=== PATIENT | male | born 1955 | race Caucasian/White ===

== ENCOUNTER 2017-04-13 05:13 | Inpatient (IN) ==
[2017-04-12 13:24] LABS: HEMATOCRIT 46.7 % (42.0-52.0); HEMOGLOBIN 15.8 g/dL (14.0-18.0); MCH 30.5 PG (27-31); MCHC 33.8 g/dL (33-37); MCV 90.2 FL (81-99); MPV 10.1 FL (7.4-10.4); RBC 5.18 XMIL (4.7-6.1)
[2017-04-12 13:46] LABS: AGAP 9; BUN 7 mg/dL (8-22); CALCIUM 9.6 mg/dL (8.8-10.2); CHLORIDE 97 mmol/L (98-107); COSMO 266; SODIUM 134 mmol/L (136-145); TCO2 28 mmol/L (25-35)
--- NOTE | 2017-04-12 14:46 | EKG Report ---
Test Performed on : 04/12/2017 12:27:58 PM Test Reason : PAT Blood Pressure : / mmHG Vent. Rate : 062 BPM Atrial Rate : 062 BPM P-R Int : 164 ms QRS Dur : 084 ms QT Int : 400 ms P-R-T Axes : 067 032 064 degrees QTc Int : 406 ms Normal sinus rhythm. Normal ECG When compared with ECG of 09-NOV-2016 11:44, No significant change was found Confirmed by Kade Jones MD ([id number]) on 04/13/2017 6:46:18 PM
[2017-04-13] MEDS ORDERED: LR 1,000 ML ONE (05:33)
[2017-04-13] MEDS ORDERED: KEFZOL 1 GM/D5W 1 GM/50 ML IVPB ONE (05:33)
[2017-04-13] MEDS ORDERED: XYLOCAINE-MPF 1% ONE (05:47)
[2017-04-13] MEDS ORDERED: LOPRESSOR ONE (05:57)
[2017-04-13] MEDS ORDERED: XYLOCAINE-MPF 2% ONE (06:23)
[2017-04-13] MEDS ORDERED: ZOFRAN ONE (06:23)
[2017-04-13] MEDS ORDERED: DIPRIVAN 1% ONE (06:25)
[2017-04-13] MEDS ORDERED: KEFZOL ONE (06:25)
[2017-04-13] MEDS ORDERED: NS 1,000 ML ONE ×2 (06:25→09:29)
[2017-04-13] MEDS ORDERED: HEPARIN ONE (06:25)
[2017-04-13] MEDS ORDERED: FENTANYL ONE (06:26)
[2017-04-13] MEDS ORDERED: LOPRESSOR PO ONE (06:30)
[2017-04-13] MEDS ORDERED: DILAUDID ONE (06:47)
[2017-04-13] MEDS ORDERED: EPHEDRINE ONE (07:16)
[2017-04-13] MEDS ORDERED: ROBINUL ONE ×2 (07:17→08:32)
[2017-04-13] MEDS ORDERED: HEPARIN (DOSE) ONE ×2 (07:28→07:46)
[2017-04-13 07:42] LABS: URINE MICRO REVIEW NEEDED? NO; URINE SOURCE CATH
[2017-04-13 07:48] LABS: BILIRUBIN URINE NEGATIVE (NEGATIVE); BLOOD URINE NEGATIVE (NEGATIVE); COLOR YELLOW; GLUCOSE URINE NEGATIVE (NEGATIVE); LEUKOCYTES URINE NEGATIVE (NEGATIVE); NITRITE URINE NEGATIVE (NEGATIVE); PH URINE 6.5; PROTEIN URINE NEGATIVE (NEGATIVE); SP GRAVITY URINE 1.011; TURBIDITY URINE CLEAR (CLEAR); UROBILINOGEN URINE NORMAL (NORMAL)
[2017-04-13 07:49] LABS: UR EPITHELIAL CELLS <10 /HPF (<10); URINE BACTERIA NEGATIVE /HPF; URINE RBC <10 /HPF (<10); URINE WBC <10 /HPF (<10)
[2017-04-13] MEDS ORDERED: NEO-SYNEPHRINE ONE (08:18)
[2017-04-13] MEDS ORDERED: NEOSTIGMINE ONE (08:32)
[2017-04-13] MEDS ORDERED: PHENERGAN ONE (09:29)
[2017-04-13] MEDS ORDERED: ZOFRAN IV PRN (12:11)
[2017-04-13] MEDS ORDERED: DILAUDID IV PRN (12:11)
--- NOTE | 2017-04-13 12:44 | OPERATIVE NOTE ---
PROCEDURE DATE: 04/13/2017 PROCEDURE PERFORMED: Left femoral popliteal bypass using a 7 mm Distaflo PTFE graft. SURGEON: Javier Gallego MD. LINE RUNNER: EVONNE Burger. PREOPERATIVE DIAGNOSIS: Claudication left leg. POSTOPERATIVE DIAGNOSIS: Claudication left leg. FINDINGS: The greater saphenous vein was marginal for use. It appeared that the patient probably had an adequate 3 vessel runoff so I decided to do a femoral popliteal using a PTFE above the knee. DESCRIPTION OF PROCEDURE: Satisfactory general endotracheal anesthesia was achieved. The left groin and left leg were prepped and draped in a sterile fashion. The foot was excluded. A vertical incision was made in the left groin. We dissected down to the common femoral artery, surrounded it an umbilical tape. Dissected out the superficial femoral and the deep femoral, surrounded them by vessel loops. An antibiotic sponge was placed in the groin wound. We then turned our attention distally and made an incision along the medial aspect of the distal thigh. Dissected into the popliteal space. We identified the distal superficial femoral and proximal popliteal artery, surrounded them with vessel loops. We gave the patient 7000 units of heparin systemically. We tunneled a 7 mm PTFE Distaflo graft into the leg. We then decided to address the distal anastomosis first. After the heparin had circulated, we opened the artery and extended it with the Pulido scissors to match the gonzales of the Distaflo graft. There was flow in the artery. We passed dilators distally and went all the way to a 4. There was plaque in the popliteal but we were able to go from a 2.5, 3, 3.5, to a 4 dilator through the artery. Again satisfactory back bleeding was present. We then constructed this anastomosis using a CV-6 Pindall suture. We did not tie it but then turned our attention proximally. We then occluded the flow in the common femoral at the inguinal ligament. We incised the artery on its anterior aspect and extended with the Pulido scissors. We then cut and remove the ring from the graft and then cut the graft in a fishmouth type fashion to match the arteriotomy. We then constructed this anastomosis using a CV- 5 Pindall suture. We then established flow through the proximal anastomosis. A couple of extra stitches were used to achieve complete hemostasis. We placed Gelfoam along the course of the proximal anastomosis and then turned our attention distally. The graft flushed well and we then tied the distal anastomosis as well. Again a couple of extra stitches were used to achieve satisfactory hemostasis. We irrigated out both wounds with Kefzol-impregnated saline. Hemostasis was satisfactory. We closed the wounds with 3-0 Polysorb running stitch 1st and 3-0 Polysorb interrupted stitches second. We then closed the skin with olu in both wounds. Sterile dressing was applied. He tolerated it well. Was sent to the recovery room in satisfactory condition. cc: Javier Gallego MD
[2017-04-13] MEDS: KEFZOL 1 GM/D5W 1 GM/50 ML IVPB IV SCH ×2 (17:57→22:22)
[2017-04-13] MEDS: NS 1,000 ML IV SCH ×2 (17:58→22:21)
[2017-04-13] MEDS: NORCO-10 PO PRN ×2 (18:01→22:21)
[2017-04-14] MEDS: NS 1,000 ML IV SCH (02:07)
[2017-04-14] MEDS: NORCO-10 PO PRN ×4 (06:19→20:00)
[2017-04-14 06:50] LABS: AGAP 7; BUN 12 mg/dL (8-22); CALCIUM 7.9 mg/dL (8.8-10.2); CHLORIDE 100 mmol/L (98-107); COSMO 267; POTASSIUM 4.4 mmol/L (3.5-5.1); SODIUM 133 mmol/L (136-145); TCO2 26 mmol/L (25-35)
[2017-04-14 07:39] LABS: MANUAL DIFF NEEDED? NO
[2017-04-14 07:45] LABS: BASO% 0.2 % (0.0-0.8); EOS# 0.11 X1000 (0.0-0.7); EOS% 1.2 % (0.0-10.0); HEMATOCRIT 32.1 % (42.0-52.0); HEMOGLOBIN 10.7 g/dL (14.0-18.0); LYMPH# 1.57 X1000 (1.2-3.4); LYMPH% 17.8 % (20.5-51.1); MCH 30.8 PG (27-31); MCHC 33.3 g/dL (33-37); MCV 92.5 FL (81-99); MONO# 1.06 X1000 (0.11-0.59); MPV 10.4 FL (7.4-10.4); NEUT% 68.8 % (42.2-75.2); PLT 158 X1000 (130-400); RBC 3.47 XMIL (4.7-6.1)
[2017-04-14] MEDS ORDERED: PRINIVIL PO SCH (09:00)
[2017-04-14] MEDS: LOPRESSOR PO SCH (09:34)
[2017-04-14] MEDS: FLOMAX PO SCH (09:35)
[2017-04-14] MEDS: SYNTHROID PO SCH (09:35)
[2017-04-14] MEDS: ASPIRIN PO SCH (09:35)
[2017-04-14] MEDS: NEURONTIN PO SCH (09:35)
[2017-04-14] MEDS: PRILOSEC PO SCH (09:35)
[2017-04-14] MEDS: LASIX PO SCH (09:35)
[2017-04-14] MEDS ORDERED: NS 1,000 ML IV SCH (12:36)
[2017-04-14] MEDS: ROBAXIN PO SCH (17:15)
--- NOTE | 2017-04-14 21:29 | VASCULAR LAB ---
DATE: 04/12/2017 STUDY: Left lower extremity greater saphenous vein mapping. REQUESTING PHYSICIAN: Dr. Gallego. DIRECTOR COMPLIANCE: Barber. INDICATION: Evaluate for bypass. FINDINGS: The greater saphenous vein was visualized along its course from the groin down to the foot on the left lower extremity. It appeared compressible in all locations. No evidence of thrombus. Starting at zone 1 it was 4.1 mm, zone 2 was 2.7 mm, zone 3 was 2.7 mm, zone 4 was 2.0 mm, zone 5 was 2.1 mm, zone 6 was 2.1 mm, zone 7 was 2.1 mm, zone 8 was 2.4 mm. SUMMARY: Marginal conduit in the left lower extremity with a small but patent greater saphenous vein. cc: MD Javier Kimble MD
[2017-04-15 07:36] VITALS: BP 96/48
[2017-04-15] MEDS: ASPIRIN PO SCH (10:05)
[2017-04-15] MEDS: NORCO-10 PO PRN (10:05)
[2017-04-15] MEDS: NEURONTIN PO SCH (10:05)
[2017-04-15] MEDS: FLOMAX PO SCH (10:05)
[2017-04-15] MEDS: ROBAXIN PO SCH (10:06)
[2017-04-15] MEDS: PRILOSEC PO SCH (10:06)
[2017-04-15] MEDS: SYNTHROID PO SCH (10:06)
[2017-04-15] MEDS: LOPRESSOR PO SCH (10:07)
[2017-04-15] MEDS: LASIX PO SCH (10:07)
== END 2017-04-15 13:49 | disposition home or self-care (01) ==
LOC: SURHOLD 05:13 → 4N 12:09
PROVIDERS: ADMIT Surgery; ATTEND Surgery

== ENCOUNTER 2017-04-23 14:15 | Inpatient (IN) ==
--- NOTE | 2017-04-23 14:46 | PROVIDER DOCUMENTATION ---
HPI-Musculoskeletal Pain/Inj - GENERAL Chief Complaint: Post Op Complaint Stated Complaint: SURGICAL COMPLICATION Time Seen by Provider: 04/23/17 15:53 Source: patient - HX OF PRESENT ILLNESS-MUSKULOSKELTAL Nature of Presenting Problem: Patient is a pleasant 62 yrs old gentleman who had femoropopliteal bypass graft surgery done on of this month, has come with the pain in the left leg and pus discharge from the wounds. He states that he has been having pain and swelling since the surgery . Getting worse now. He states that he was seen by Dr. Gallego earlier this week and got few of his olu removed from both incision sites at the groin area and the distal thigh. He tells that the wound burst open at both places and some bleeding and discharge was noted. He continues to have pain and discharge from those areas . Difficulty walking. Swelling all over the leg and pain. Has been having some dizziness.No other particular complaints. Review of Systems - Adult - REVIEW OF SYSTEMS - ADULT Constitutional: reports: no symptoms reported Eyes: reports: no symptoms reported Ears, Nose, Mouth & Throat: reports: no symptoms reported Cardiovascular: reports: no symptoms reported Respiratory: reports: no symptoms reported Gastrointestinal: reports: no symptoms reported Genitourinary: reports: no symptoms reported Musculoskeletal: reports: see HPI Neurological: reports: no symptoms reported Psychiatric: reports: no symptoms reported Endocrine: reports: no symptoms reported Hematologic/Lymphatic: reports: no symptoms reported Allergic/Immunologic: reports: no symptoms reported Past History - Adult - PAST MEDICAL HISTORY-ADULT Review of Records: reports: Nursing Assessment Review Major Childhood Illnesses: reports: denies history Cardiovascular: reports: HTN, hyperlipidemia - PRIOR SURGERIES/PROCEDURES Surgical/Procedure History: reports: cardiac stent, back/neck - IMMUNIZATION STATUS Childhood Immunizations: See Nurse Assessment Flu Vaccine: See Nurse Assessment Physical Exam-Injury Related - Physical Exam-Injury Related General Appearance: moderate distress Eyes: PERRL/EOMI, pink conjunctivae Head, Ears, Nose, Mouth & Throat: normocephalic/atraumatic, moist mucous membranes, normal ENT inspection Neck: non-tender, full range of motion, supple Respiratory: lungs clear, other (Chest tenderness from his BYpass surgery since November. No new tenderness or pain) Cardiovascular: regular rate, rhythm Abdominal Exam: non tender, soft Male Genitalia: other ( Left groin area insicion having some some discharge , hard and tender.) Rectal Exam: deferred Lymphatic: no adenopathy Back Exam: normal inspection Extremity: normal range of motion, non-tender Integumentary: normal color, warm/dry Neurologic: no motor/sensory deficits Psych/Mental Status: normal mood/affect, normal thought content, normal thought process, oriented x 3 Progress - PLAN OF CARE/RESULTS Progress/Plan/Lab Results: Orders Category Date Time Status Admit - [facility] Routine AdmDCTranf 04/23/17 18:32 Ordered Advance Diet as Tolerated ORDERED Care 04/23/17 18:32 Completed Dressing Check PRN Care 04/23/17 18:32 Active Dressing Check Q1h Care 04/23/17 18:32 Active Routine PostOp Vital Signs ORDERED Care 04/23/17 18:32 Completed Regular Diet Diet 04/23/17 18:[address] EXTREM LOWER W/O CONTRAST [CT] Stat Exams 04/23/17 14:46 Completed CBC WITH DIFF [HEME] Stat Lab 04/23/17 15:12 Completed COMPREHENSIVE METABOLIC PANEL [CHEM] Stat Lab 04/23/17 15:12 Completed Aspirin Med 04/24/17 09:00 Discontinued 81 mg PO DAILY Cilostazol [Pletal] Med 04/24/17 09:00 Discontinued 100 mg PO DAILY Enoxaparin [Lovenox] Med 04/24/17 08:45 Discontinued 40 mg SUBQ Q24H Furosemide [Lasix] Med 04/24/17 09:00 Discontinued 20 mg PO DAILY Gabapentin [Neurontin] Med 04/24/17 09:00 Discontinued 300 mg PO DAILY Hydrocodone/APAP 10 mg/325 mg [Lutz-10] Med 04/24/17 01:20 Discontinued 1 each PO Q4H PRN PRN Hydrocodone/APAP 7.5 mg/325 mg [Lutz-7.5] Med 04/23/17 18:32 Discontinued 1 each PO Q4H PRN PRN Hydromorphone [Dilaudid] Med 04/24/17 01:18 Discontinued 0.5 mg IV NOW ONE Hydromorphone [Dilaudid] Med 04/24/17 01:18 Discontinued 0.5 mg IV Q3H PRN PRN Lactated Ringers Inj [Lr] 1,000 ml Med 04/23/17 18:32 Discontinued IV 50 mls/hr Levothyroxine [Synthroid] Med 04/24/17 07:00 Discontinued 25 microgm PO ACB Metoprolol [Lopressor] Med 04/24/17 09:00 Discontinued 50 mg PO DAILY Morphine Med 04/23/17 14:49 Discontinued 1 mg IV NOW ONE Omeprazole [Prilosec] Med 04/24/17 09:00 Discontinued 20 mg PO DAILY Ondansetron [Zofran] Med 04/23/17 18:32 Discontinued 4 mg IV Q4-6H PRN PRN Pharmacy Order [Vancomycin IV Per Pharmacy] Med 04/23/17 18:32 Discontinued 1 each MISC DIRECTED Piperacillin/Tazobactam [Zosyn] 3.375 gm Med 04/23/17 21:00 Discontinued 0.9% Sodium Chloride Inj [Ns] 50 ml IV Q6H Piperacillin/Tazobactam [Zosyn] 4.5 gm Med 04/23/17 14:49 Discontinued 0.9% Sodium Chloride Inj [Ns] 100 ml IV NOW Tamsulosin [Flomax] Med 04/24/17 09:00 Discontinued 0.4 mg PO DAILY Vancomycin 1,350 mg Med 04/24/17 14:00 Discontinued 0.9% Sodium Chloride Inj [Ns] 250 ml IV Q18H Vancomycin 1,850 mg Med 04/23/17 20:00 Discontinued 0.9% Sodium Chloride Inj [Ns] 500 ml IV ONCE US [Venous U/S Bilateral Legs] Stat Ther 04/23/17 14:46 Completed Transfer/Admit Order [TRANSFER] Routine Transfer 04/23/17 17:41 Completed Doppler negative for any DVT. The CT of the groin area and the thigh shows some soft tissue swelling and fluid under the wound areas. Started on Zosyn here for possible infection. Dr. Ruvalcaba who is software integration developer for Dr. Gallego is coming for evaluation. Handed over care to Dr. Jade at 5 pm Result Diagrams: 04/23/17 15:12 04/23/17 15:12 Departure - Departure Date of Disposition Decision: 04/23/17 Time of Disposition Decision: 19:00 DIAGNOSIS: Post op infection Disposition: ADMITTED INPATIENT 09 Certified Medical Emergency: Emergent Condition: Stable - Critical Care Note This patient required my direct & personal management of CC.: No Attestation - Physician/ NALINI Attestation Patient care was provided by Advanced Practice Provider:: No The physician spent face to face time with patient:: Yes Advanced Practice Provider documentation review:: Supervising physician onsite and consulted in the evaluation and care of this patient. The physician did have a face to face encounter with the patient.
[2017-04-23] MEDS ORDERED: ZOSYN 4.5 GM in NS 100 ML IV ONE (14:49)
[2017-04-23] MEDS ORDERED: MORPHINE IV ONE (14:49)
[2017-04-23 15:28] LABS: MANUAL DIFF NEEDED? NO
[2017-04-23 15:30] LABS: BASO% 0.6 % (0.0-0.8); EOS% 1.5 % (0.0-10.0); HEMOGLOBIN 12.1 g/dL (14.0-18.0); LYMPH# 1.08 X1000 (1.2-3.4); LYMPH% 15.7 % (20.5-51.1); MCH 30.8 PG (27-31); MCHC 33.6 g/dL (33-37); MCV 91.6 FL (81-99); MONO# 0.64 X1000 (0.11-0.59); MONO% 9.3 % (1.7-9.3); MPV 9.5 FL (7.4-10.4); NEUT% 72.9 % (42.2-75.2); PLT 389 X1000 (130-400); RBC 3.93 XMIL (4.7-6.1)
[2017-04-23 15:49] LABS: AGAP 13; ALBUMIN 3.5 g/dL (3.5-5.0); ALKALINE PHOSPHATASE 82 U/L (32-122); BUN 13 mg/dL (8-22); CALCIUM 9.2 mg/dL (8.8-10.2); CHLORIDE 95 mmol/L (98-107); COSMO 265; GOT 13 U/L (10-34); GPT 11 U/L (10-44); POTASSIUM 4.6 mmol/L (3.5-5.1); SODIUM 132 mmol/L (136-145); TCO2 24 mmol/L (25-35); TOTAL BILIRUBIN 0.36 mg/dL (0.20-1.00); TOTAL PROTEIN 6.1 g/dL (6.3-8.3)
--- NOTE | 2017-04-23 16:21 | Diag Imaging Result Doc PS360 ---
EXAM: CT EXTREM LOWER (LEFT) W/O CONTRAST INDICATION: Possible abscess TECHNIQUE: COMPARISON: None. FINDINGS: Note that detection of small abscesses may not be possible with no IV contrast. Also, full evaluation of fluid collections are limited with no contrast. There has been a very recent femoropopliteal bypass graft on the left. There are skin olu at the groin and just above the knee medially. There is a fluid collection in the subcutaneous soft tissues of the groin just superior to the surgical olu that measures approximately 3.7 x 2.4 cm axially. This probably represents a seroma but is difficult to fully characterize with no contrast. A developing abscess is possible in the right clinical scenario. There is fluid along the newly placed bypass graft and there is a larger collection of fluid near the popliteal anastomosis containing droplets of gas. It measures approximately 2.1 x 2.6 cm axially. This may be environmental gas within a seroma. Again, further evaluation is limited. There is diffuse soft tissue edema around the left lower extremity. IMPRESSION: Nonspecific postsurgical soft tissue fluid collections along the course of the newly placed femoropopliteal bypass graft as described. Electronically signed by Albert Elena 04/23/2017 4:19 PM
[2017-04-23] MEDS ORDERED: VANCOMYCIN IV PER PHARMACY MISC SCH (18:32)
[2017-04-23] MEDS ORDERED: ZOFRAN IV PRN (18:32)
--- NOTE | 2017-04-23 18:40 | HISTORY AND PHYSICAL ---
DATE OF ADMISSION: 04/23/2017 HISTORY OF PRESENT ILLNESS: This 62-year-old male who Dr. Gallego performed a left femoral to above knee popliteal bypass on the . Dr. Gallego took a couple olu out, drain what sounds like seroma in the office, he was scheduled to see him back this week. He states that today he was walking around the house feeling well and large amount of serosanguineous fluid drained out of his lower incision, he was concerned, called an ambulance brought him to the hospital. In the emergency department he has been hemodynamically stable. CT scan showed small fluid collection, postoperative changes along the graft and no obvious signs of infection however abscess. PAST MEDICAL HISTORY: Hypertension, history of CVA, coronary disease, peripheral vascular disease, tobacco abuse. Atrial fibrillation, hyperlipidemia, COPD. SURGICAL HISTORY: Left femoral popliteal bypass, coronary artery bypass graft. SOCIAL HISTORY: Does drink and smoke. He has had spinal surgery. REVIEW OF SYSTEMS: Ten point negative what is mentioned in HPI. PHYSICAL EXAM: Vital signs: Temperature 98 degrees, pulse 91, blood pressure 148/89, O2 saturation 100% on room air. General: He is alert, no acute distress. Cardiovascular: Normal rate, regular rhythm. Pulmonary: No increased work of breathing. Abdomen: Soft, nontender. His left groin incision without cellulitis and I probed the wound. There is small amount of serosanguineous drainage, some slight superficial dehiscence of the superior aspect, tender along the course of his graft but not unexpected postoperative, I do not see any cellulitis here and his distal incision there is some serosanguineous drainage between the sutures. I probed this, there is no pus. Peripheral vascular exam: He has got palpable pedal pulses. His foot is slightly erythematous. LABS: White count 6, hematocrit 36, platelets 389,000, creatinine 0.9. LFTs are normal. ASSESSMENT/PLAN: 62-year-old male with recent femoral to above knee popliteal bypass. He had what sounds like decompression the seroma from the distal incision. Will monitor this, I do not see obvious purulence here but given that there is prosthetic graft here we will monitor him and keep him on IV antibiotics tonight. If he remains afebrile, white count remains normal we could plan for him to go home the next couple days. His graft seems patent, extremities well perfused. I will discuss case Dr. Gallego, will resume his home medications and just observe him for now with IV antibiotics. cc: MD Javier Kimble MD
[2017-04-23] MEDS: NORCO-7.5 PO PRN (19:46)
[2017-04-23] MEDS: LR 1,000 ML IV SCH (19:46)
[2017-04-23] MEDS ORDERED: VANCOMYCIN 1,850 MG in NS 500 ML IV ONE (20:00)
[2017-04-23] MEDS: ZOSYN 3.375 GM in NS 50 ML IV SCH (22:56)
[2017-04-24] MEDS: NORCO-7.5 PO PRN (00:47)
[2017-04-24] MEDS ORDERED: DILAUDID IV ONE (01:18)
[2017-04-24] MEDS: NORCO-10 PO PRN ×2 (06:37→10:40)
[2017-04-24] MEDS: SYNTHROID PO SCH (06:38)
[2017-04-24] MEDS: ZOSYN 3.375 GM in NS 50 ML IV SCH ×4 (06:38→22:14)
[2017-04-24] MEDS: PLETAL PO SCH (08:30)
[2017-04-24] MEDS: NEURONTIN PO SCH (08:30)
[2017-04-24] MEDS: ASPIRIN PO SCH (08:30)
[2017-04-24] MEDS: FLOMAX PO SCH (08:30)
[2017-04-24] MEDS: LASIX PO SCH (08:30)
[2017-04-24] MEDS: PRILOSEC PO SCH (08:30)
[2017-04-24] MEDS: LOPRESSOR PO SCH (08:30)
[2017-04-24] MEDS: DILAUDID IV PRN ×2 (08:39→22:15)
[2017-04-24] MEDS: LOVENOX SUBQ SCH (10:40)
[2017-04-24] MEDS: VANCOMYCIN 1,350 MG in NS 250 ML IV SCH (13:58)
[2017-04-24] MEDS: LR 1,000 ML IV SCH (14:29)
--- NOTE | 2017-04-24 15:23 | PROGRESS NOTE ---
DATE: 04/24/2017 SUBJECTIVE: He is still having some pain and swelling in his leg and some serosanguineous drainage from his wound but no bleeding. His foot otherwise feels warm and without pain in his foot. OBJECTIVE: Vital signs: No fever. Pulse has been 50s to 60s. Blood pressure 106/49, oxygen saturation 99% on room air. General: He is alert. Extremities: Left foot is mildly swollen. I do not see any cellulitis at his groin or distal anastomosis site. There is some serosanguineous drainage from the distal wound. I do not feel any pulsatile mass or hematoma. Palpable pedal pulses. LABS: No new labs this morning. ASSESSMENT AND PLAN: This is a 62-year-old male status post left femoral to above knee popliteal bypass. He did develop a seroma along the graft material in the groin down to his distal thigh. I do not see obvious signs of infection. I do have him on broad-spectrum antibiotics preemptively and will monitor him. I do not think any of his drainage was a herald bleed but we will monitor him through the day. He is requiring some pain medicine and if things remain stable, most likely will be ready to go home in the next day or so. cc: MD Javier Kimble MD
[2017-04-25] MEDS: DILAUDID IV PRN ×3 (00:55→20:59)
[2017-04-25] MEDS: SYNTHROID PO SCH ×2 (05:20→08:27)
[2017-04-25] MEDS: ZOSYN 3.375 GM in NS 50 ML IV SCH ×7 (05:20→23:31)
[2017-04-25] MEDS: NEURONTIN PO SCH (08:15)
[2017-04-25] MEDS: LOPRESSOR PO SCH (08:15)
[2017-04-25] MEDS: LASIX PO SCH (08:15)
[2017-04-25] MEDS: PRILOSEC PO SCH (08:15)
[2017-04-25] MEDS: VANCOMYCIN 1,350 MG in NS 250 ML IV SCH (08:15)
[2017-04-25] MEDS: FLOMAX PO SCH (08:15)
[2017-04-25] MEDS: ASPIRIN PO SCH (08:15)
[2017-04-25] MEDS: PLETAL PO SCH (08:15)
[2017-04-25] MEDS: LOVENOX SUBQ SCH (08:16)
[2017-04-25] MEDS: NORCO-10 PO PRN ×3 (08:24→23:01)
[2017-04-25] MEDS: LR 1,000 ML IV SCH (21:02)
[2017-04-26] MEDS: DILAUDID IV PRN ×2 (00:14→05:35)
[2017-04-26] MEDS: VANCOMYCIN 1,350 MG in NS 250 ML IV SCH (03:15)
[2017-04-26] MEDS: NORCO-10 PO PRN ×3 (05:29→13:16)
[2017-04-26] MEDS: ZOSYN 3.375 GM in NS 50 ML IV SCH ×2 (05:29→11:14)
[2017-04-26] MEDS: SYNTHROID PO SCH ×2 (05:29→09:07)
[2017-04-26] MEDS: PLETAL PO SCH (09:06)
[2017-04-26] MEDS: LOVENOX SUBQ SCH (09:06)
[2017-04-26] MEDS: PRILOSEC PO SCH (09:06)
[2017-04-26] MEDS: ASPIRIN PO SCH (09:06)
[2017-04-26] MEDS: NEURONTIN PO SCH (09:06)
[2017-04-26] MEDS: LASIX PO SCH (09:06)
[2017-04-26] MEDS: LOPRESSOR PO SCH (09:06)
[2017-04-26] MEDS: FLOMAX PO SCH (09:06)
[2017-04-26 13:20] VITALS: BP 126/63
--- NOTE | 2017-04-27 15:31 | Extremity Venous Study ---
PROCEDURE NAME: Venous U/S Bilateral Legs - 04/23/2017 DATE OF STUDY: 04/23/2017 REQUESTING PHYSICIAN: Dr. Lennon MEDICAL REVIEW SPECIALIST: Sudarshan. INDICATION: Status post left lower extremity bypass surgery with edema and fluid at legs. PROCEDURE: Bilateral lower extremity venous duplex and color flow imaging. EQUIPMENT: Admeldid E9 ultrasound System with a 9 LD transducer. FINDINGS: Images of bilateral lower extremity venous systems were obtained in both sagittal and transverse planes. Doppler was used to evaluate veins for spontaneity, phasicity, respiratory excursion, and digital augmentation. RESULTS: No obvious superficial or deep venous thrombosis. There appears to be a patent bypass on the left side. There is some fluid around the graft which is nonspecific at this time. INTERPRETATION: No obvious superficial or deep venous thrombosis. There is a patent graft in the left lower extremity with some nonspecific fluid noted around it. I would recommend handling clinically. cc: MD Juan Pearson MD Robert C. Walker, MD
== END 2017-04-26 13:32 | disposition home or self-care (01) ==
LOC: 4N 14:15 → ED 14:15
PROVIDERS: ADMIT Surgery; ATTEND Surgery